=== PATIENT | male | born 1960 | race Caucasian/White ===

== ENCOUNTER 2016-12-09 10:06 | Observation (INO) | payer OTHER ==
--- NOTE | ~2016-12-09 | HP ---
History And Physical [address] [place]. [address] NAME: SHOBHA BROOKS : 58 STATUS : DIS IN PAT#: [id number] AGE: 56 ADM/REG DATE : 12/09/16 MR#: [id number] REPORT SERV DATE: 12/09/16 DICTATED BY: EVANGELINA GÓMEZ DATE: 12/09/16 REPORT STATUS : Draft TRANSCRIBED BY: MODL DATE: 12/09/16 DATE OF ADMISSION: 12/09/2016 CARDIOLOGY ADMISSION HISTORY AND PHYSICAL IDENTIFYING DATA: The patient is a 56-year-old man with a history of paroxysmal atrial fibrillation and severe obstructive sleep apnea. CHIEF COMPLAINT: Palpitations associated with dyspnea and lower extremity edema, several weeks in duration. HISTORY OF PRESENT ILLNESS: Mr. Brooks is a 56-year-old man, who is well known to me from [facility]. The patient has a history of paroxysmal atrial fibrillation. The patient presented to [facility] for regular followup yesterday. At that time, the patient was found to be in atrial fibrillation with a rapid ventricular response and a heart rate of approximately 130 to 140 beats per minute. The patient interestingly was transitioning in and out of sinus rhythm. At that time, the decision was made to increase the patient's metoprolol, though he was instructed to follow up today in [facility] for repeat EKG to make sure that his heart rate was controlled. Today in [facility]iology Clinic, the patient was found to remain in atrial fibrillation with a rapid ventricular response. His heart rate remained at approximately 135 beats per minute. It was felt that the patient's RVR, which had been associated with the recent onset of lower extremity edema and dyspnea, was an unsafe condition which would require IV medication for rate control. The patient was therefore admitted to the Clinical Decision Unit for observation. Shortly after being admitted to the Clinical Decision Unit, the patient converted to normal sinus rhythm. He was monitored for approximately one hour and exhibited no further episodes of atrial fibrillation. The patient at this time is asymptomatic, and specifically denies chest pain or dyspnea. His lower extremity edema has been improving the last two to three days. PAST MEDICAL HISTORY: 1. Paroxysmal atrial fibrillation. 2. Hypertension. 3. Severe obstructive sleep apnea. 4. Tobacco abuse. PAST SURGICAL HISTORY: Noncontributory. FAMILY HISTORY: Negative for early coronary heart disease or sudden cardiac . SOCIAL HISTORY: The patient continues to smoke cigarettes. He has no significant history of heavy alcohol or drug use. History And Physical [address] [address] NAME: SHOBHA BROOKS : 58 STATUS : DIS IN PAT#: [id number] AGE: 56 ADM/REG DATE : 12/09/16 MR#: [id number] REPORT SERV DATE: 12/09/16 DICTATED BY: EVANGELINA GÓMEZ DATE: 12/09/16 REPORT STATUS : Draft TRANSCRIBED BY: WILL DATE: 12/09/16 ALLERGIES: THE PATIENT HAS NO KNOWN MEDICATION ALLERGIES. HOME MEDICATIONS: 1. Clindamycin 300 mg daily - the patient was started on this medication for redness of his lower extremities, which most likely represents stasis dermatitis. 2. Clobetasol topical cream. 3. Eliquis 5 mg p.o. twice daily. 4. Gabapentin 400 mg p.o. four times daily. 5. Hydrochlorothiazide 12.5 mg daily. 6. Kerydin 5% topical solution. 7. Metoprolol tartrate 150 mg p.o. twice daily. 8. Nexium 40 mg p.o. daily. 9. Potassium supplement 1 tablet daily. 10.Valsartan 325 mg daily. 11.Vitamin B12 supplement 500 mcg p.o. daily. REVIEW OF SYSTEMS: A complete 12-system review was performed. This is noncontributory except for the pertinent positives and negatives are noted in the history of present illness above. PHYSICAL EXAMINATION: VITAL SIGNS: Temperature is 97.6 degrees Fahrenheit, blood pressure is 136/95 mmHg, heart rate is currently 80 beats per minute and regular, respirations 18, and oxygen saturation is 99% on room air. CONSTITUTIONAL: The patient is an overweight white man, who is in no acute distress. EYES: PERRL, EOMI, clear conjunctiva. HEAD/MNT: NCAT with moist mucous membranes and grossly normal hard and soft palate. NECK: Supple with no obvious thyromegaly or lymphadenopathy CARDIOVASCULAR: Regular rhythm with a normal S1 and a physiologically split second heart sound. No significant murmurs, rubs, or gallops are noted. The jugular venous pressure appears normal at this time. PULMONARY: Clear to auscultation bilaterally, no wheezing, rales or rhonchi noted. No dullness to percussion. Non-labored. ABDOMINAL: Soft, non-tender, non-distended with no hepatosplenomegaly noted. EXTREMITIES: There is trace to 1+ edema at the ankles bilaterally. There is no significant redness noted. No clubbing or cyanosis is noted. MUSCULOSKELETAL: Grossly normal strength and range of motion in all extremities INTEGUMENTARY: Skin appears intact with no bruises, wounds or active lesions noted NEURO/PSYC: Alert and oriented x3, with no dysarthria, facial droop or lateralizing weakness noted. DIAGNOSTIC DATA: A 12-lead EKG: At this time, the patient's 12-lead EKG shows normal sinus rhythm with no significant abnormality. His ECG from [facility]iology Clinic earlier today shows atrial fibrillation with a rapid ventricular response and a heart rate of 133 beats per minute. ASSESSMENT AND PLAN: History And Physical [address] [address] NAME: SHOBHA BROOKS : 58 STATUS : DIS IN PAT#: [id number] AGE: 56 ADM/REG DATE : 12/09/16 MR#: [id number] REPORT SERV DATE: 12/09/16 DICTATED BY: EVANGELINA GÓMEZ DATE: 12/09/16 REPORT STATUS : Draft TRANSCRIBED BY: WILL DATE: 12/09/16 1. Paroxysmal atrial fibrillation with rapid ventricular response: At this time, the patient has converted back to normal sinus rhythm. The patient was recently diagnosed with severe obstructive sleep apnea. This is presently untreated and likely to be the trigger of the patient's episodes of atrial fibrillation. At this time, I have recommended the patient to increase his metoprolol to the maximum dose of 200 mg twice daily. Should the patient have recurrent rapid heart rate, dyspnea, or worsening lower extremity edema, he will present back to the emergency room. I will follow up with the patient in [facility]iology Clinic in one week. We will consider amiodarone temporarily if the patient has recurrent atrial fibrillation with rapid ventricular response. The patient will continue Eliquis for stroke prophylaxis. 2. Severe obstructive sleep apnea: The patient has been evaluated and [facility]. A CPAP machine has been ordered, the patient has not picked this up yet. The patient was urged to get a CPAP machine and start therapy as soon as possible to prevent further episodes of atrial fibrillation, rapid ventricular response, and decompensated heart failure. DISPOSITION: Discharged to home. DISCHARGE CONDITION: Stable. JC/MODL Evangelina Gómez MD / [id number] CC: MD Aubrey Prince M.D.
[~2016-12-09 10:06] MED LIST: ASAB PO; CLOBETASOL0.051 EX; DIOVAN HCT320 MG/25 PO; LOP50 PO; NEUR400 PO; NEXIUM40 PO; POTASSIUM; TRIAMCINOLONE ID; VITAMIN B-121000 MC1 SL
[2016-12-09] MEDS ORDERED: LOP100 PO (11:53)
[2016-12-09] MEDS ORDERED: ELIQUIS 5 MG TAB5 MG PO (11:55)
== END 2016-12-09 12:19 | disposition home or self-care (01) ==
LOC: CDU1 10:06
DX: I48.0 Paroxysmal atrial fibrillation (principal); I10 Essential (primary) hypertension; R07.9 Chest pain, unspecified; G47.33 Obstructive sleep apnea (adult) (pediatric); Z79.899 Other long term (current) drug therapy
CPT/HCPCS: 93005; G0378